=== PATIENT | female | born 1970 | race Caucasian/White ===

== ENCOUNTER 2017-07-03 13:06 | Emergency (ER) | payer OTHER ==
[~2017-07-03] VITALS: Ht 165.1 cm; Wt 56.5 kg
[~2017-07-03 13:06] MED LIST: DOXY100T PO
[2017-07-03 13:28] VITALS: BP 94/60; PULSE 94; RESP 16; TEMP 98.2; O2SAT 98
--- NOTE | 2017-07-03 15:19 | PD ---
HPI Chief Complaint: Cold / Flu Symptoms Time Seen by Provider: 15:13 Travel History International Travel<30 days: No Contact w/Intl Traveler<30days: No Traveled to known affect area: No History of Present Illness HPI 46-year-old female presents for evaluation. For 3 days she's had cough, congestion, myalgias, loose watery stools. Her daughter has had similar symptoms and was recently diagnosed with upper respiratory infection. Symptoms are mild with no aggravating or alleviating factors. Denies abdominal pain, rash, recent travel, nausea or vomiting. No other complaints at this time. PFSH Past Medical History Arthritis: Yes (LOWER BACK) Anxiety: Yes Cancer: Yes (CERVICAL) Chemotherapy: Yes (h/o of receiving chemo tx for ovarian ca) Diminished Hearing: No Immunizations Current: Yes Migraines: Yes Past Surgical History Appendectomy: Yes Hysterectomy: Yes Social History Alcohol Use: Yes (OCCAISIONAL beer) Tobacco Use: No (QUIT JUNE 2014) Substance Use: No Allergies-Medications (Allergen,Severity, Reaction): Coded Allergies: penicillin G (Verified Allergy, Severe, CAN'T BREATHE, 07/03/17) Reported Meds & Prescriptions Reported Meds & Active Scripts Active No Active Prescriptions or Reported Medications Review of Systems Except as stated in HPI: all other systems reviewed are Neg Physical Exam Narrative GENERAL: Well-nourished female in no acute distress SKIN: Warm and dry. HEAD: Atraumatic. Normocephalic. EYES: Pupils equal and round. No scleral icterus. No injection or drainage. ENT: No nasal bleeding or discharge. Mucous membranes pink and moist. NECK: Trachea midline. No JVD. CARDIOVASCULAR: Regular rate and rhythm. No murmur appreciated. RESPIRATORY: No accessory muscle use. Clear to auscultation. Breath sounds equal bilaterally. GASTROINTESTINAL: Abdomen soft, non-tender, nondistended. Hepatic and splenic margins not palpable. MUSCULOSKELETAL: No obvious deformities. No clubbing. No cyanosis. No edema. NEUROLOGICAL: Awake and alert. No obvious cranial nerve deficits. Motor grossly within normal limits. Normal speech. PSYCHIATRIC: Appropriate mood and affect; insight and judgment normal. Data Data Last Documented VS Vital Signs Date Time Temp Pulse Resp B/P (MAP) Pulse Ox O2 Delivery O2 Flow Rate FiO2 07/03/17 13:28 98.2 94 16 94/60 (71) 98 Orders Orders Influenzae A/B Antigen (07/03/17 15:18) Ed Discharge Order (07/03/17 16:38) MDM Medical Decision Making Medical Screen Exam Complete: Yes Emergency Medical Condition: Yes Medical Record Reviewed: Yes Differential Diagnosis Influenza, rhinitis, sinusitis, gastroenteritis Narrative Course 46-year-old female 3 days of cough, congestion, myalgias, diarrhea. Physical examination is reassuring. Influenza antigen was performed but is negative. The patient has a viral upper respiratory infection. She is stable for discharge. Diagnosis Primary Impression: Upper respiratory infection Additional Instructions: Stay well-hydrated and well-nourished, get plenty of rest. Use over-the- counter cough suppressants nasal decongestants for symptom relief. Return for any emergent medical conditions. Med/Other Pt SpecificInfo: No Change to Meds Scripts No Active Prescriptions or Reported Meds Disposition: 01 DISCHARGE HOME Condition: Stable Fercho Young Jul 03, 2017 15:19
== END 2017-07-03 17:10 | disposition home or self-care (01) ==
LOC: PHED 13:06 → PHEFT 17:10
DX: J06.9 Acute upper respiratory infection, unspecified (principal); Z87.891 Personal history of nicotine dependence
CPT/HCPCS: 87804; 99283